=== PATIENT | male | born 2000 | race Caucasian/White ===

== ENCOUNTER 2025-04-16 11:41 | Outpatient (REF) | payer OTHER, SELFPAY ==
--- NOTE | ~2025-04-16 | MR_ITS ---
EXAMINATION: MR KNEE WITHOUT CONTRAST, RIGHT CLINICAL INFORMATION: Knee pain COMPARISON: None available. TECHNIQUE: MRI of the knee without contrast was performed using routine sequences on a high-field scanner. FINDINGS: MENISCI: Medial Meniscus: Intact Lateral Meniscus: Intact LIGAMENTS: Cruciate: Intact Collateral: Intact EXTENSOR MECHANISM: Intact Mild distal quadriceps tendinosis. ARTICULAR CARTILAGE/BONE: Patellofemoral Compartment: Mild arthritis. Chondral thinning and fissuring with subchondral edema in the central trochlea. Medial Compartment: No significant chondral loss. Lateral Compartment: No significant chondral loss. No aggressive marrow replacing lesion. JOINT FLUID AND BURSAE: Small effusion. No significant Kang's cyst. There is mild edema/fluid in the interfascial plane posteriorly, in the superior medial calf, nonspecific, perhaps sequela of strain. MR/MR knee RT wo con IMPRESSION: * Menisci appear intact without evidence of discrete tear. * Mild patellofemoral arthritis. * Mild distal quadriceps tendinosis. * Small effusion. *Mild edema/fluid in the fascial plane of the superior medial calf, perhaps sequela of strain. Electronically signed by: Chilango Arellano MD 04/16/2025 03:04 PM EDT
== END 2025-04-16 11:42 | disposition home or self-care (01) ==
LOC: HO.MRI 11:41
PROVIDERS: Visit Provider Family Medicine
DX: M25.561 Pain in right knee (principal)
CPT/HCPCS: 73721

== ENCOUNTER → 2025-04-16 11:59 | Outpatient (BNV) | payer OTHER, SELFPAY | PROVIDERS: Visit Provider Radiology Diagnostic Ultrasound | DX: M22.2X1 Patellofemoral disorders, right knee (principal); M25.461 Effusion, right knee | CPT/HCPCS: 73721 ==

== ENCOUNTER 2025-05-21 12:57 | Outpatient (REF) | payer OTHER, SELFPAY ==
--- NOTE | ~2025-05-21 | FL_ITS ---
EXAMINATION: XR ARTHROGRAM KNEE, RIGHT CLINICAL INFORMATION: PRE MRI COMPARISON: None available. TECHNIQUE: Risks and benefits were explained to the patient in detail. Informed consent was obtained. Utilizing fluoroscopic guidance and palpation, the skin of the right knee superolateral to the patella was localized, marked, prepped and draped in sterile fashion. Skin and subcutaneous tissues were anesthetized with 1% lidocaine. Subsequently, a 25-gauge arthrography needle was inserted into the joint space from a superolateral approach utilizing intermittent fluoroscopy, and intra-articular positioning confirmed with a small amount of Isovue 300 contrast. 8 mL (of mixture of 2 mL 1% lidocaine, 0.1 mL Gadavist, 3 mL of Isovue-300, and 3 mL sterile saline) was then injected into the intra-articular space of the right knee. The patient tolerated the procedure well. There were no immediate complications. 4 total fluoroscopic images were stored. FLUOROSCOPY TIME: 54 seconds DOSE AREA PRODUCT: 254 uGy-m2 (microgray-meter squared) FL/FL arthrogram knee RT IMPRESSION: 1. Successful intra-articular instillation of dilute gadolinium contrast into the right knee joint. The patient will undergo subsequent MRI. Electronically signed by: Jong Jaffe MD 05/21/2025 02:40 PM [facility]
--- NOTE | ~2025-05-21 | MR_ITS ---
EXAM: MR Knee Rt W Con TECHNIQUE: Multiplanar multisequence MR imaging performed through the right knee with intra-articular contrast. INDICATION: Right knee pain and tenderness, right knee locked during hockey, collegiate [employer] PRIOR: 04/16/2025 FINDINGS: Menisci: Lateral Meniscus: Intact Medial Meniscus: Intact ACL/PCL: ACL and PCL are intact. Extensor mechanism: There is mild edema in Hoffa's fat pad deep to the medial patellar tendon minimally extending into the tendon. There is very subtle thickening of the mid and proximal patellar tendon. Mottled signal void in the prefemoral fat pad is likely iatrogenic. MCL/LCL: MCL is intact and unremarkable. LCL complex is intact and unremarkable. Articular cartilage: Patellofemoral Compartment: Gadolinium tracks deep to articular cartilage in the lower trochlear groove measuring 7 mm superior to inferior consistent with an area of delamination. There is adjacent reactive marrow signal change. Trochlear cartilage is intact otherwise. Patellar cartilage demonstrates full-thickness fissuring involving the inferior medial patella over a 6 mm area. Lateral Compartment: Lateral compartment articular cartilage is intact. Medial Compartment: Medial compartment articular cartilage is intact. Bones/Marrow: Aside from reactive marrow signal deep to the articular cartilage in the trochlea, bone marrow signal is physiologic. Soft tissues: There is a small Kang's cyst and trace fluid tracking along the medial surface of medial head gastrocnemius muscle dorsal to the joint line. Interval resolution of fluid tracking along the surface of popliteus muscle and along the myofascial junction of the medial head of gastrocnemius muscle in the proximal lower leg MR/MR knee RT w con IMPRESSION: There is a grade 1 sprain of patellar tendon. There is a 7 mm area of delaminated articular cartilage in the lower trochlear groove with adjacent reactive marrow signal change. Additionally, there is full-thickness fissuring of articular cartilage in the inferior medial patella. There is trace fluid tracking along the medial surface of the medial head gastrocnemius muscle cephalad to the joint line. This could represent fluid leaking out of a small Kang cyst versus a grade 1 myofascial strain. Interval resolution of edema related to grade 1 myofascial strain in the medial head gastrocnemius and popliteus muscle below the joint line. Electronically signed by: Harman Pardo MD 05/21/2025 02:49 PM [facility]
--- OUTSIDE RECORDS SUMMARY | 2025-05-21 17:30 | XMS_ITS | Clinical Summary ---
Author Organization [facility] Address [address] [place] [id number] Phone Care Team Providers Care Aviculturist Name Role Phone Rajinder Ahuja Primary Care Provider [phone] Allergies No known active allergies Encounters Date Type Department Care Team Description 04/17/2025 2:15 PM EDT Office Visit [facility] [address] [place] [address] [place] [id number] Brian Stovall DO Bucket-handle tear of lateral meniscus of right knee as current injury, initial encounter (Primary Dx) from Last 3 Months Social History Tobacco Use Types Packs/Day Years Used Date Smoking Tobacco: Never Assessed Education Answer Date Recorded Are you interested in more education? Not on mamta e 03/02/2023 Are you concerned about learning? Not on file 03/02/2023 No 03/02/2023 No 03/02/2023 Digital Access Answer Date Recorded No 03/02/2023 No 03/02/2023 Reliable internet access at home? Not on file 03/02/2023 Device with a working camera? Not on file Sex and Gender Information Value Date Recorded Sex Assigned at Not on file Legal Sex Male 11:19 PM EDT Gender Identity Not on file Sexual Orientation Not on file Last Filed Vital Signs Vital Sign Reading Time Taken Comments Blood Pressure 120/70 03/02/2023 12:04 AM EDT Pulse 53 03/02/2023 12:04 AM EDT Temperature 36.3 C (97.3 F) 03/02/2023 12:04 AM EDT Respiratory Rate 16 03/02/2023 12:04 AM EDT Oxygen Saturation 97% 03/02/2023 12:04 AM EDT Inhaled Oxygen Concentration - - Weight 79.4 kg (175 lb) 03/02/2023 12:04 AM EDT Height 177.8 cm (5' 10 ) 03/02/2023 12:04 AM EDT Body Mass Index 25.11 03/02/2023 12:04 AM EDT Plan of Treatment Health Maintenance Due Date Last Done Comments Adult Td,Tdap Booster 2002 DEPRESSION SCREENING 2014 SMOKING Hx and SMOKELESS TOB ACCO SCREENING 2015 HPV VACCINES (1 - Male 3-dos e series) 2017 MENINGOCOCCAL VACCINES (B) ( 1 of 2 - Standard) 2018 HEPATITIS C SCREENING 2020 HIV ONE-TIME SCREENING (18-6 5 YEARS) 2020 INFLUENZA VACCINE (#1) 2025 COVID-19 VACCINE (1 - 2024-2 6 season) 2025 HEPATITIS A VACCINES Aged Out No long er eligible based on patient's age to complete this topic HIB VACCINES Aged Out No longer eligi ble based on patient's age to complete this topic MENINGOCOCCAL VACCINES (ACWY) Aged Out No longer eligible based on patient's age to complete this topic PNEUMOCOCCAL VACCINES (0-49 years) Aged Out No longer eligible based on patient's age to complete this topic Medical Devices Not on file Insurance [employer] [id number] [employer] [id number] [facility] [employer] [place] [id number] [employer] [place] [id number] [employer] [place] [id number] Care Teams Aviculturist Relationship Specialty Start Date End Date Rajinder Ahuja DO [address] [place] [id number] PCP - General Family Medicine 04/17/25 Additional Source Comments The information contained in this document represents components of the legal health record. It is not the complete legal health record.[facility]
== END 2025-05-21 12:58 | disposition home or self-care (01) ==
LOC: HO.XRAY 12:57
PROVIDERS: Visit Provider Family Medicine
DX: M25.561 Pain in right knee (principal)
CPT/HCPCS: 27369; 73580; 73722; A9585

== ENCOUNTER → 2025-05-21 13:50 | Outpatient (BNV) | payer OTHER, SELFPAY | PROVIDERS: Visit Provider Radiology Diagnostic Radiology | DX: M25.561 Pain in right knee (principal) | CPT/HCPCS: 27369; 73580; 73722 ==